=== PATIENT | male | born 1950 | race Caucasian/White ===

== ENCOUNTER 2019-11-07 03:18 | Outpatient (CLI) | payer MEDICARE, SELFPAY ==
[2019-11-07 12:13] LABS: ALT 22 U/L (16-63); AST 20 U/L (15-37); Albumin 4.1 g/dL (3.4-5.0); Alkaline Phosphatase 84 U/L (46-116); Anion Gap 2.9 mmol/L (3-11); BUN 15 mg/dL (7-18); Bilirubin, Total 0.4 mg/dL (0.2-1.0); CO2 29.1 mmol/L (21.0-32.0); CREATININE 1.38 mg/dL (0.70-1.30); Calcium 9.3 mg/dL (8.5-10.1); Calculated LDL 165 mg/dL (<100); Chloride 106 mmol/L (98-107); Cholesterol 256 mg/dL (<200); Estimated GFR 51.24 (mL/min/1.73m2); Glucose 97 mg/dL (74-106); HDL Cholesterol 61 mg/dL (40-60); Sodium 138 mmol/L (136-145); TSH (W/Ref FT4) 1.02 uIU/mL (0.36-3.74); Total Protein 7.2 g/dL (6.4-8.2); Triglyceride 152 mg/dL (<150)
== END 2019-11-07 03:38 ==
PROVIDERS: PCP Family Medicine; Visit Provider Family Medicine
DX: I10 Essential (primary) hypertension (principal); G47.10 Hypersomnia, unspecified
CPT/HCPCS: 36415; 80053; 80061; 84443

== ENCOUNTER 2020-10-30 02:31 | Outpatient (CLI) | payer MEDICARE, SELFPAY ==
[2020-10-30 14:37] LABS: Abs Immature Grans 0.04 10^3/uL (0.0-0.06); Absolute Basophil Count 0.02 10^3/uL (0.0-0.2); Absolute Lymphocyte Count 1.05 10^3/uL (1.2-3.4); Absolute Monocyte Count 0.86 10^3/uL (0.1-0.8); Absolute Neutrophil Count 6.85 10^3/uL (1.2-6.7); Basophils % 0.2; Eosinophils % 2.2; HCT 34.3 % (40.0-50.0); Immature Grans % 0.4; Lymphocytes % 11.6; MCH 27.4 pg (27.0-33.0); MCHC 32.1 % (32.0-36.0); MCV 85.3 fL (80-95); MPV 9.1 fL (8.0-11.0); Monocytes % 9.5; Neutrophils % 76.1; Nucleated RBC 0 %; Platelet Count 473 10^3/uL (130-400); RBC 4.02 10^6/uL (4.36-5.78); RDW 13.1 % (11.8-14.1); RDW-SD 40.5 fL; WBC 9.02 10^3/uL (4.4-10.8)
[2020-10-30 15:13] LABS: ALT 18 U/L (16-63); AST 25 U/L (15-37); Albumin 3.1 g/dL (3.4-5.0); Alkaline Phosphatase 104 U/L (46-116); Anion Gap 10.1 mmol/L (3-11); BUN 24 mg/dL (7-18); Bilirubin, Total 0.2 mg/dL (0.2-1.0); CO2 25.9 mmol/L (21.0-32.0); CREATININE 1.5 mg/dL (0.70-1.30); Calcium 8.8 mg/dL (8.5-10.1); Chloride 98 mmol/L (98-107); Glucose 134 mg/dL (74-106); Potassium 4.4 mmol/L (3.5-5.1); Sodium 134 mmol/L (136-145); Total Protein 6.7 g/dL (6.4-8.2)
== END 2020-10-30 02:32 | disposition home or self-care (01) ==
LOC: LBO 02:31
PROVIDERS: PCP Family Medicine; Visit Provider Family Medicine
DX: R63.4 Abnormal weight loss (principal); K62.5 Hemorrhage of anus and rectum
CPT/HCPCS: 36415; 80053; 85025

== ENCOUNTER 2020-11-03 10:11 | Emergency (ER) | payer MEDICARE, SELFPAY ==
[2020-11-03] VITALS (22 sets, daily range): BP systolic 108–140; BP diastolic 72–90; PULSE 65–77; RESP 12–26; TEMP 36.6–37.1; O2SAT 90–99
--- NOTE | 2020-11-03 10:00 | DI.CT_ITS ---
Exam(s) CT CHEST/ABD/PEL W EXAM: CT CHEST/ABD/PEL W CLINICAL HISTORY: unintentional weight loss, rectal bleeding. TECHNIQUE: Imaging Protocol: Axial computed tomography images with coronal and sagittal reformatted images were created and reviewed CONTRAST MATERIAL: Intravenous: Omnipaque 350 Contrast volume:100 ml Oral: None COMPARISON: CT CHEST WITHOUT CONTRAST from 09/14/2016 FINDINGS: CHEST: LUNGS: There are no pulmonary infiltrates nor pleural effusions. There is mild atelectasis in the la teral aspect of the left lower lobe. No ominous pulmonary nodules. MEDIASTINUM: There is no hilar nor mediastinal adenopathy. Visualized thyroid unremarkable.Fusion david te in the lower cervical spine incidentally noted. CARDIAC: Heart size is normal. There is no pericardial effusion.Ascending thoracic aorta is dilated with diameter 4.1 cm. No dissection. Diameter of the mid thoracic aortic arch is 2.7 cm. Diameter of proximal descending thoracic aorta is 3.2 cm. Diameter of the mid descending thoracic aorta is 3. 1 cm. Diameter of the distal thoracic aorta is 2.9 cm. OSSEOUS: No significant osseous lesions.. ABDOMEN: There is no ascites. LIVER: There is a 2 millimeter hypodensity in the anterior aspect of the liver. This has benign appe arance. Either small cyst or hemangioma. GALLBLADDER/BILIARY: Gallbladder slightly distended. No obvious gallstones seen on CT. No gallbladder wall edema or pericholecystic fluid. CBD is not dilated. PANCREAS: Mild dilatation of the pancreatic duct in the region of the head and neck. 3 millimeters cy stic structure in the uncinate process. No obvious solid mass seen in the pancreas. No peripancreatic fluid. SPLEEN: Spleen is not enlarged. There are no intrasplenic lesions. Splenic and portal veins are adams nt. ADRENALS: There are no significant adrenal masses. KIDNEYS: Cysts are noted in the right kidney. The largest cyst in the right kidney measures 2.5 by 1. 8 cm. No solid masses. Solitary small 5 millimeters cyst in the left kidney. Few small parapelvic cys ts are noted bilaterally. No hydronephrosis nor hydroureter. No intrarenal calculi evident. No calcul i in the urinary bladder. Bladder is not distended.. ABDOMINAL AORTA: Abdominal aorta is not enlarged. LYMPH NODES: There is no retroperitoneal nor paraaortic adenopathy. ABDOMINAL WALL: No evidence of significant anterior abdominal wall hernia. GI: There is a diffuse colitis pattern in the descending-left colon as well as sigmoid and rectum. Th ere is also extensive sigmoid diverticulosis. Just beyond the splenic flexure there is abundant strea yazmin around the proximal descending left colon. PELVIS: LYMPH NODES: There is no intrapelvic nor inguinal adenopathy. GI: No evidence of appendicitis.No evidence of sigmoid diverticulitis. URINARY BLADDER: No calculi nor masses evident REPRODUCTIVE: Prostate and seminal vesicles unremarkable. OSSEOUS: No significant osseous lesions. Partial ankylosis of the SI joints bilaterally. IMPRESSION: 1. The main finding here is a severe colitis pattern extending from the splenic flexure of the colon down to the rectum. There is also extensive diverticulosis of the sigmoid without evidence of acute d iverticulitis. 2. Mild prominence of the pancreatic duct. 3 millimeter cystic structure in the pancreatic uncinate p rocess. Recommend follow-up MRI. 3. Benign cysts in the kidneys, both cortical and parapelvic. No solid renal masses. No calculi. No h ydronephrosis. 4. In the chest there are no significant pulmonary findings nor pleural effusions. However, the diame ter of the ascending thoracic aorta is enlarged, measuring 4.1 cm. This requires appropriate follow-u p. RADIATION DOSE DELIVERED: 1,082.29mGy.cm Total DLP DATA REPOSITORY: All CT scans at this facility are submitted to the National Radiology Data Registry (NRDR) Dose Index Registry (DIR) with the [employer] (A[employer]). RADIATION OPTIMIZATION: All CT scans at this facility use at least one of these dose optimization te chniques: automated exposure control; mA and/or kV adjustment per patient size (includes targeted exa ms where dose is matched to clinical indication); or iterative reconstruction.
--- NOTE | 2020-11-03 10:20 | W.ED.GENAD ---
Discharge Plan Disposition Patient Disposition: HOME Condition: Stable Discharge Details Clinical Impression: Colitis, BRBPR (bright red blood per rectum), Dilated pancreatic duct Primary Care Provider: Lance Gonzalez ED Provider: Justina Plaza Home Meds and New Rx's Prescriptions: New metronidazole [Flagyl] 500 mg tablet 500 mg PO TID 7 Days Qty: 21 RF: 0 levofloxacin 750 mg tablet 750 mg PO DAILY Qty: 7 RF: 0 Continued albuterol sulfate [ProAir HFA] 90 mcg/actuation HFA aerosol inhaler 2 puff Inhalation Q6H PRN Qty: 1 RF: 6 amlodipine 10 mg tablet 10 mg PO DAILY Qty: 90 RF: 3 lisinopril 20 mg tablet 20 mg PO DAILY Qty: 90 RF: 3 meloxicam [Mobic] 15 mg tablet 15 mg PO DAILY Qty: 90 RF: 3 omeprazole 20 mg tablet,delayed release (DR/EC) See Rx Instructions PO BID Qty: 270 RF: 3 sertraline 100 mg tablet 200 mg PO HS Qty: 180 RF: 3 No Action prochlorperazine maleate 5 mg tablet 5 - 10 mg PO TID PRN (Reason: nausea and vomiting) Qty: 30 RF: 0 Discharge Instructions Instructions: Colitis (ED) Additional Instructions: Imaging completed today shows inflammation of your colon consistent with colitis. This may be infectious and the antibiotic should help. Please take the Flagyl and Levaquin as prescribed. You have received your first dosing of both. Your next dose of Levaquin will not be due until tomorrow. Please also oyster picker a probiotic at the pharmacy and take this along with the antibiotics to help prevent diarrhea. Encourage water intake. For the next 2 days, please stick with a bland and liquid diet. Please call general surgery clinic tomorrow, number listed below. Please discuss upcoming colonoscopy and concerns today. If you develop fever/chills, increased pain, inability stay hydrated or other new/worsening symptoms please seek care urgently once again. Otherwise, please follow-up in your with your primary care in the next 1 to 2 weeks for reevaluation. Referrals: Chanell Carlson MD [ [facility] STAFF PHYSICIAN] - Lance Gonzalez DO [Primary Care Provider] - Discharge Data Discharge Date/Time-TO BE ENTERED AT DEPARTURE: 11/03/20 14:35 Medical Decision Making Patient is a pleasant 70-year-old male presenting today with chief complaint of bright red blood per rectum, weakness, fatigue, nausea, vomiting. Patient reports that he has had a GI bleeding for the past 6 months. He has lost approximately 30 pounds unintentionally. He has been being followed by his primary care. He is scheduled to have a colonoscopy next week. States that he presents today because he has new onset of abdominal pain that has been present for the past 2 days. He states that he has a mixture of darker and brighter blood in his stool. He states that aside from the abdominal discomfort, the other symptoms are chronic but that everything seems to progressively be increasing. He denies any exacerbating symptoms to worsen his pain. However, he does state when the pain increases he is unable to maintain an erect posture. He denies any change in urinary habits, no easy bruising, no blood in his urine. States he is chronically short of breath which he associates with COPD. He denies any increase in this. No chest pain. Past medical history is pertinent for stage III kidney disease, depression, reflux, hiatal hernia, alcohol abuse, hyperlipidemia, COPD, hypertension. Patient is not anticoagulated. Reviewed recent note from patient's primary care provider. Patient was seen on 10/28/[address] lBair. They are primarily concern for colorectal carcinoma. However, he did advise that if his colonoscopy is normal he would likely obtain CT of chest abdomen pelvis. On exam, patient appears nontoxic. Vital signs are stable. He does not appear particularly pale, no conjunctival pallor. Lungs are clear, normal cardiac exam. No lower extremity edema. Patient indicates the entire lower abdomen is area of discomfort. However, no significant pain is elicited with palpation. I do feel an area that feels more firm on the right lower quadrant, concern for possible mass. However, patient did not express significant discomfort with palpation over this area. Will obtain chest abdomen pelvis CT as there is concern for cancerous etiology. Also obtain baseline labs including type and screen and CBC. Spoke wih patients daughter, Bina [phone]. She is concerned about weakness that has been reported and his ability to stay at home alone. Labs reviewed. No drop in H&H. No sigfnicant leukocytosis. INR WNL. Creatinine bumped at 1.9. He is receiving hydration. CT reviewed by radiologist: FINDINGS: Lungs: No acute infiltrates. Linear opacity at left lung base, consistent with subsegmental atelectasis and/or scar. No suspicious pulmonary nodule. Pleural spaces: Unremarkable. No pneumothorax. No pleural effusion. Heart: Unremarkable. No cardiomegaly. No pericardial effusion. Aorta: Dilated ascending thoracic aorta, with maximum diameter of 4.2 cm. Lymph nodes: Unremarkable. No enlarged lymph nodes. Bones/joints: ACDF hardware projects over the lower cervical spine. Soft tissues: Unremarkable. IMPRESSION: Dilated ascending thoracic aorta, with maximum diameter of 4.2 cm. Recommend clinical assessment and follow-up. Intraperitoneal space: Trace pelvic ascites. Vasculature: No aortic aneurysm. The superior mesenteric artery and vein are widely patent. Lymph nodes: Unremarkable. No enlarged lymph nodes. Urinary bladder: Unremarkable as visualized. Reproductive: 5.3 cm maximum transverse dimension of enlarged prostate. Seminal vesicles symmetric. Bones/joints: No acute or suspicious osseous abnormalities. Marked multilevel narrowing of the intervertebral disc spaces of the lumbar spine, which is greatest at L2-L3 and L4-L5. Soft tissues: Unremarkable. Other findings: No ductal dilation. IMPRESSION: 1. The pancreatic duct is dilated at the level of the pancreatic head and neck, with maximum diameter diameter of 5 mm. The pancreatic body and tail are mildly atrophic. These findings are of uncertain etiology or clinical significance. No discrete obstructing pancreatic mass is identified. If indicated, consider GI consult/follow-up. 2. Findings consistent with colitis which may be infectious or inflammatory in nature. 3. Enlarged prostate. 4. Trace pelvic ascites. 5. Mildly dilated gallbladder, of uncertain etiology or clinical significance, without other secondary signs of acute cholecystitis. Correlate with laboratory data and physical examination. Consulted with general surgeon regarding ductal dilatation, colitis, history. Spoke with Dr. Moctezuma who recommended a bland, liquid diet. Advised abx 7-10 days of rocephin flagyl if he stays inpatient or levoquinj flagyl if d/c to home. Needs MRCP at some point regarding the ductal dilation with GI. They advised this could be as an outpatient in 4-6 weeks. Call surgery office tomorrow to discuss visit and concerns. Discussed with patient. He does not want inpatient admission. He is agreeable to plan outlined by general surgery. He will f/u closely with PCP as well. Strict return precautions were discussed. Spoke with patient's daughter again, she is coming to stay with him and assist. Patient is moving well, unassisted. Gave first dose of abx, hydration. Encouraged that he have repeat labs completed in [facility] next few days. REferral for GI has been sent. All of his questions and concerns were addressed, he is in agreement with this plan. HPI General Mode of arrival: ambulatory. Date/Time Provider Initiated Documentation: 11/03/20 11:04. Limitations to Documentation: no limitations. Information obtained by: patient, RN notes reviewed and old records reviewed. History of Present Illness 70 year old M presents to the emergency department with the chief complaint of GI bleed, weakness, described as moderate, with intensity rated at 7. Quality is described as aching, and is localized to the abdomen. Patient reports no radiation. Patient started experiencing this month(s) and it has been constant. No relieving factors improve symptom(s), Eating worsens symptoms . Patient notes loss of appetite, nausea/vomiting and weakness (generalized); denies chest pain, cough, fever/chills, rash, shortness of breath and syncope. Patient did receive the following treatments prior to arrival, none Related Data Home Medications Medication Instructions Recorded Confirmed amlodipine 10 mg tablet 10 mg PO DAILY #90 tab 10/21/20 11/03/20 lisinopril 20 mg tablet 20 mg PO DAILY #90 tab 10/21/20 11/03/20 meloxicam 15 mg tablet 15 mg PO DAILY #90 tab 10/21/20 11/03/20 omeprazole 20 mg tablet,delayed See Rx Instructions PO BID #270 10/21/20 11/03/20 release tab-cap sertraline 100 mg tablet 200 mg PO HS #180 tab-cap 10/21/20 11/03/20 albuterol sulfate 90 mcg/actuation 2 puff INHALATION Q6H PRN #1 10/28/20 11/03/20 aerosol inhaler inhaler levofloxacin 750 mg PO DAILY #7 tab 11/03/20 metronidazole [Flagyl] 500 mg PO TID 7 Days #21 tab 11/03/20 prochlorperazine maleate 5 mg 5 - 10 mg PO TID PRN #30 tab 11/06/20 tablet Previous Rx's Medication Instructions Recorded amlodipine 10 mg tablet 10 mg PO DAILY #90 tab 08/09/21 lisinopril 20 mg tablet 20 mg PO DAILY #90 tab 10/21/20 meloxicam 15 mg tablet 15 mg PO DAILY #90 tab 10/21/20 omeprazole 20 mg tablet,delayed See Rx Instructions PO BID #270 10/21/20 release tab-cap sertraline 100 mg tablet 200 mg PO HS #180 tab-cap 10/21/20 albuterol sulfate 90 mcg/actuation 2 puff INHALATION Q6H PRN #1 10/28/20 aerosol inhaler inhaler levofloxacin 750 mg PO DAILY #7 tab 11/03/20 metronidazole [Flagyl] 500 mg PO TID 7 Days #21 tab 11/03/20 prochlorperazine maleate 5 mg 5 - 10 mg PO TID PRN #30 tab 11/06/20 tablet Allergies Allergy/AdvReac Type Severity Reaction Status Date / Time ibuprofen AdvReac Intermediate GI Verified 11/03/20 10:16 intolerance hydrochlorothiazide AdvReac Unknown avoid dt Verified 11/03/20 10:16 h/o Gout oxycodone AdvReac Unknown shakes, Verified 11/03/20 10:16 cold sweats (from Percocet) General Stated Complaint: GI Bleed HUGO: 2 Review of Systems Constitutional Constitutional: Reports as per HPI, Denies chills, Denies fatigue, Denies fever(s), Denies headache(s), Reports poor appetite and Reports weakness ENT Ears, Nose, Mouth, and Throat: Denies headache(s) Cardiovascular Cardiovascular: Reports as per HPI, Denies chest pain and Denies dyspnea Respiratory Respiratory: Reports as per HPI, Denies cough and Denies dyspnea Gastrointestinal Gastrointestinal: Reports as per HPI Genitourinary Genitourinary: Denies system reviewed and no additional complaints, except as documented (patient denies any change in urinary habits) and Denies hematuria Musculoskeletal Musculoskeletal: Reports as per HPI and Denies back pain Integumentary/Breasts Skin/Breast: Reports as per HPI and Denies rash Neurologic Neurologic: Reports as per HPI, Denies headache(s) and Reports weakness Endocrine Endocrine: Denies fatigue [facility] Medical History (Updated 11/03/20 @ 14:07 by MYRNA Denson) Bright red blood per rectum Depressive disorder (06/02/05) fluoxetine responsive; sertraline responsive (h/o withdrawal symptoms at [facility] 04/2014) 06/10/[address] Dagmar Kenny psych, Social Phobia F40.10, /WALTER F41.1 Excessive daytime sleepiness Stage III chronic kidney disease Unexplained weight loss Surgical History Cervical fusion (04/15/00) C4-6 fusion, anterior approach, steel plate, [place] for arm weakness Endoscopy (10/09/16) [facility] [place] Prosper Uribe MD thickened epiglottis H/O cataract removal with insertion of prosthetic lens 10/04/19 OD Repair of inguinal hernia (03/30/05) MAURO, L inguinal, Dr Monge Thoracentesis (04/11/14) L 200 cc exudate, [place] thoracotomy, open, peel (05/01/14) L open, path neg, ruiz pneumonic empyema Family History Father Mental disorder Probable depression Social History Smoking/Tobacco Use Status: Former Tobacco Use Smoking risk assessment performed?: Yes Alcohol Intake: former Drug use: Never Housing: house current occupation: retired from [employer] Pets and animals: Yes Pets and animals: dog(s) What is your relationship status?: Panel score (0-1 are the most socially isolated patients): 0 What type of physical activity do you participate in: none Seatbelt use: always Drive intox or ride w/intox show horse driver: No Working smoke detector in home: Yes Carbon monox detector in home: Yes Do you feel safe in your relationship?: Yes Exam Const General: cooperative, comfortable, no acute distress, well developed and ill appearing chronically Nutritional Appearance: average body habitus and well nourished Orientation: alert and awake [facility] Head: normal to inspection Mouth: moist mucous membranes Eyes General: appearance normal, both eyes and all related structures (no pallor) Resp Effort & Inspection: normal respiratory effort, able to speak in complete sentences and no respiratory distress Auscultation: clear to auscultation bilaterally, no rales, no rhonchi and no wheezes Cardio Rate: regular rate Rhythm: regular rhythm Heart Sounds: S1 normal and S2 normal GI Inspection: normal to inspection Palpation: soft, no hepatosplenomegaly, not firm, no guarding, no pulsatile masses, not rigid and tender in the RLQ Percussion: normal to percussion Auscultation: normal bowel sounds Back/Spine/Pelvis Back: no CVA tenderness Skin General skin exam: no rashes or lesions noted Trauma: no lacerations or abrasions Neuro General: patient alert and patient awake Cognition: normal cognition Speech: speech normal Gait: normal gait Extrem General: normal to inspection, capillary refill normal, no pedal edema, no calf tenderness and other (2+ distal pulses) Psych Appearance: grossly normal and well kempt Mental Status: mental status grossly normal Speech and Movement: speech and movement normal Course Vital Signs Vital signs: Vital Signs Temperature 37.1 C 11/03/20 10:11 Pulse 71 11/03/20 10:11 Respiratory Rate 18 11/03/20 10:11 Blood Pressure 140/90 11/03/20 10:11 Pulse Oximetry 96 11/03/20 10:11 Temperature 37.1 C 11/03/20 10:11 Temperature Source Skin 11/03/20 10:11 Pulse 71 11/03/20 10:11 Respiratory Rate 18 11/03/20 10:11 Respiratory Effort Non-Labored 11/03/20 10:16 Blood Pressure 140/90 11/03/20 10:11 Blood Pressure Position Sitting 11/03/20 10:11 Pulse Oximetry 96 11/03/20 10:11 Oxygen Delivery Method Room Air 11/03/20 10:11 Oxygen Flow Rate 0 11/03/20 10:11 Pain Level 7 11/03/20 10:11
[2020-11-03 10:27] LABS: Abs Immature Grans 0.03 10^3/uL (0.0-0.06); Absolute Basophil Count 0.04 10^3/uL (0.0-0.2); Absolute Eosinophil Count 0.13 10^3/uL (0.0-0.7); Absolute Lymphocyte Count 0.97 10^3/uL (1.2-3.4); Absolute Monocyte Count 1.01 10^3/uL (0.1-0.8); Absolute Neutrophil Count 9.68 10^3/uL (1.2-6.7); Basophils % 0.3; Eosinophils % 1.1; HCT 35.7 % (40.0-50.0); HGB 11.5 g/dL (13.5-17.5); Immature Grans % 0.3; Lymphocytes % 8.2; MCH 27.5 pg (27.0-33.0); MCHC 32.2 % (32.0-36.0); MCV 85.4 fL (80-95); MPV 8.7 fL (8.0-11.0); Monocytes % 8.5; Neutrophils % 81.6; Nucleated RBC 0 %; Platelet Count 520 10^3/uL (130-400); RBC 4.18 10^6/uL (4.36-5.78); RDW 13.3 % (11.8-14.1); RDW-SD 41.8 fL; WBC 11.86 10^3/uL (4.4-10.8)
[2020-11-03] MEDS: Ondansetron 4 MG/2 ML VIAL IM (10:30)
[2020-11-03] MEDS: Lactated Ringers 1,000 ML 1000 ML IV (10:30)
[2020-11-03] MEDS: MORPHine 4 MG/ML SYR IVP ×2 (10:31→13:03)
[2020-11-03 10:38] LABS: Prothrombin Time 9.8 sec (9.3-11.0)
[2020-11-03 10:44] LABS: ALT 21 U/L (16-63); AST 19 U/L (15-37); Alkaline Phosphatase 117 U/L (46-116); Anion Gap 5.3 mmol/L (3-11); BUN 37 mg/dL (7-18); Bilirubin, Total 0.3 mg/dL (0.2-1.0); CO2 29.7 mmol/L (21.0-32.0); CREATININE 1.9 mg/dL (0.70-1.30); Chloride 101 mmol/L (98-107); Estimated GFR 35.32 (mL/min/1.73m2); Glucose 118 mg/dL (74-106); Magnesium 1.9 mg/dL (1.8-2.4); Potassium 4.5 mmol/L (3.5-5.1); Sodium 136 mmol/L (136-145); Total Protein 7.5 g/dL (6.4-8.2)
[2020-11-03 10:45] LABS: Troponin I < 0.05 ng/mL (<0.06)
[2020-11-03] MEDS: Lactated Ringers 1,000 ML 125 ML IV (11:07)
[2020-11-03 11:37] LABS: Lipase 159 U/L (73-393)
--- NOTE | 2020-11-03 11:40 | NUR.NOTE ---
Nursing Note: Bina [phone] daughter
[2020-11-03 11:53] LABS: Bilirubin Negative (Negative); Blood Negative (Negative); Clarity Clear (Clear); Glucose Negative (Negative); Ketones Negative (Negative); Leukocyte Esterase Negative (Negative); Nitrite Negative (Negative); Specific Gravity 1.015 (1.005-1.025); Urobilinogen 0.2 EU/dL (Up TO 0.2)
[2020-11-03] MEDS: Omnipaque 350 MG/ML 100 ML BTL IV (12:44)
[2020-11-03] MEDS: Normal Saline Flush 10 ML SYR IVP (12:45)
[2020-11-03] MEDS: ACETAMINOPHEN 1,000 MG/100 ML BTL 400 MG IVPB (13:02)
--- NOTE | 2020-11-03 13:29 | DI.VRAD_ITS ---
PROCEDURE INFORMATION: Exam: CT Chest With Contrast; Diagnostic Exam date and time: 11/03/2020 10:09 AM Age: 70 years old Clinical indication: Other: Unintentional weight loss, rectal bleeding TECHNIQUE: Imaging protocol: Diagnostic computed tomography of the chest with contrast. 3D rendering (Not supervised by radiologist): MIP and/or 3D reconstructed images were created by the technologist. Radiation optimization: All CT scans at this facility use at least one of these dose optimization techniques: automated exposure control; mA and/or kV adjustment per patient size (includes targeted exams where dose is matched to clinical indication); or iterative reconstruction. Contrast material: OMNIPAQUE 350; Contrast volume: 100 ml; Contrast route: INTRAVENOUS (IV); COMPARISON: CT CHEST WITHOUT CONTRAST 09/14/2016 2:07 PM FINDINGS: Lungs: No acute infiltrates. Linear opacity at left lung base, consistent with subsegmental atelectasis and/or scar. No suspicious pulmonary nodule. Pleural spaces: Unremarkable. No pneumothorax. No pleural effusion. Heart: Unremarkable. No cardiomegaly. No pericardial effusion. Aorta: Dilated ascending thoracic aorta, with maximum diameter of 4.2 cm. Lymph nodes: Unremarkable. No enlarged lymph nodes. Bones/joints: ACDF hardware projects over the lower cervical spine. Soft tissues: Unremarkable. IMPRESSION: Dilated ascending thoracic aorta, with maximum diameter of 4.2 cm. Recommend clinical assessment and follow-up. PROCEDURE INFORMATION: Exam: CT Abdomen And Pelvis With Contrast Exam date and time: 11/03/2020 10:09 AM Age: 70 years old Clinical indication: Other: Unintentional weight loss, rectal bleeding TECHNIQUE: Imaging protocol: Computed tomography of the abdomen and pelvis with contrast. 3D rendering (Not supervised by radiologist): MIP and/or 3D reconstructed images were created by the technologist. Radiation optimization: All CT scans at this facility use at least one of these dose optimization techniques: automated exposure control; mA and/or kV adjustment per patient size (includes targeted exams where dose is matched to clinical indication); or iterative reconstruction. Contrast material: OMNIPAQUE 350; Contrast volume: 100 ml; Contrast route: INTRAVENOUS (IV); COMPARISON: CT CHEST WITHOUT CONTRAST 09/14/2016 2:07 PM FINDINGS: Liver: Subcentimeter low-attenuation structure in the liver, too small to characterize by CT, but likely benign. Otherwise unremarkable liver. Gallbladder and bile ducts: Mildly dilated gallbladder. No gallbladder wall thickening, pericholecystic inflammatory change, or calcified gallstones identified. No biliary dilatation. Common bile duct diameter is 4 mm. Pancreas: The pancreatic duct is dilated at the level of the pancreatic head and neck, with maximum diameter diameter of 5 mm. No discrete pancreatic mass is identified. The pancreatic body and tail are mildly atrophic. Spleen: Normal. No splenomegaly. Adrenal glands: Normal. No mass. Kidneys and ureters: Rounded water attenuation simple cysts in the right kidney, which require no further follow-up, measuring as large as 2.4 cm in the upper pole. Additional subcentimeter low-attenuation structures in the kidneys, too small to characterize by CT but likely benign, requiring no further follow-up. Parapelvic left renal cysts. Otherwise unremarkable kidneys. Stomach and bowel: Extending from the splenic flexure through the rectum, the colon demonstrates due for diffuse circumferential mild edematous wall thickening and mucosal hyperenhancement with associated mild pericolonic fat stranding. Scattered sigmoid diverticula are seen, without evidence of diverticulitis. No bowel obstruction. Appendix: The appendix is unable to be delineated, however no inflammatory changes are seen in the expected region of the appendix. Intraperitoneal space: Trace pelvic ascites. Vasculature: No aortic aneurysm. The superior mesenteric artery and vein are widely patent. Lymph nodes: Unremarkable. No enlarged lymph nodes. Urinary bladder: Unremarkable as visualized. Reproductive: 5.3 cm maximum transverse dimension of enlarged prostate. Seminal vesicles symmetric. Bones/joints: No acute or suspicious osseous abnormalities. Marked multilevel narrowing of the intervertebral disc spaces of the lumbar spine, which is greatest at L2-L3 and L4-L5. Soft tissues: Unremarkable. Other findings: No ductal dilation. IMPRESSION: 1. The pancreatic duct is dilated at the level of the pancreatic head and neck, with maximum diameter diameter of 5 mm. The pancreatic body and tail are mildly atrophic. These findings are of uncertain etiology or clinical significance. No discrete obstructing pancreatic mass is identified. If indicated, consider GI consult/follow-up. 2. Findings consistent with colitis which may be infectious or inflammatory in nature. 3. Enlarged prostate. 4. Trace pelvic ascites. 5. Mildly dilated gallbladder, of uncertain etiology or clinical significance, without other secondary signs of acute cholecystitis. Correlate with laboratory data and physical examination. Dictated and Authenticated by: Ellen Freeman MD. Ordering:FARHANA Horn MD
--- NOTE | 2020-11-03 14:15 | NUR.NOTE ---
Nursing Note: Referral given to Care management for follow up in 4 to 6 weeks for pancreatic ductal dilation, needs MRCP. Cathy Diane
[2020-11-03] MEDS: levoFLOXacin 500 MG, levoFLOXacin 250 MG 750 MG PO (14:21)
[2020-11-03] MEDS: metroNIDAZOLE 500 MG TAB PO (14:21)
--- NOTE | 2020-11-04 11:22 | PDOC.ERCMPRO ---
- If Service Date Differs Date of service: 11/04/20 Time of Service: 11:22 Care Management Progress Note Alfonzo is seen in the ED for colitis and a dilated pancreatic duct. At the request of ED provider, CM coordinates a referral to [facility] to assist Alfonzo in obtaining an appointment for an MRCP.
== END 2020-11-03 14:35 | disposition home or self-care (01) ==
PROVIDERS: Emergency Provider Physician Assistant; PCP Family Medicine
DX: K62.5 Hemorrhage of anus and rectum (principal); K52.9 Noninfective gastroenteritis and colitis, unspecified; K86.89 Other specified diseases of pancreas; R63.4 Abnormal weight loss; R10.30 Lower abdominal pain, unspecified
CPT/HCPCS: 36415; 74177; 80053; 83690; 86850; 86900; 86901; 96361; 96372; 96374; 96375; 96376; 99285; 71260; 81003; 83735; 84484; 85025; 85610; J0131; J2270; J2405; J3490

== ENCOUNTER 2020-12-03 02:09 | Outpatient (CLI) | payer MEDICARE, SELFPAY ==
[2020-12-03 14:33] LABS: Abs Immature Grans 0.03 10^3/uL (0.0-0.06); Absolute Basophil Count 0.05 10^3/uL (0.0-0.2); Absolute Lymphocyte Count 1.65 10^3/uL (1.2-3.4); Absolute Monocyte Count 0.62 10^3/uL (0.1-0.8); Absolute Neutrophil Count 4.93 10^3/uL (1.2-6.7); Basophils % 0.7; Eosinophils % 2.7; HCT 33.5 % (40.0-50.0); Immature Grans % 0.4; Lymphocytes % 22.1; MCH 28.1 pg (27.0-33.0); MCHC 32.8 % (32.0-36.0); MCV 85.5 fL (80-95); MPV 8.8 fL (8.0-11.0); Monocytes % 8.3; Neutrophils % 65.8; Nucleated RBC 0 %; Platelet Count 387 10^3/uL (130-400); RBC 3.92 10^6/uL (4.36-5.78); RDW 16.6 % (11.8-14.1); RDW-SD 51.6 fL; WBC 7.48 10^3/uL (4.4-10.8)
[2020-12-03 17:35] LABS: ALT 24 U/L (16-63); AST 24 U/L (15-37); Albumin 3.7 g/dL (3.4-5.0); Alkaline Phosphatase 88 U/L (46-116); Anion Gap 8.7 mmol/L (3-11); BUN 23 mg/dL (7-18); Bilirubin, Total 0.3 mg/dL (0.2-1.0); CO2 27.3 mmol/L (21.0-32.0); CREATININE 1.2 mg/dL (0.70-1.30); Calcium 9.2 mg/dL (8.5-10.1); Chloride 102 mmol/L (98-107); Ferritin 58 ng/mL (26-388); Glucose 95 mg/dL (74-106); Potassium 4.7 mmol/L (3.5-5.1); Sodium 138 mmol/L (136-145); Total Protein 7.5 g/dL (6.4-8.2)
[2020-12-04 09:58] LABS: Prealbumin 28 mg/dL (20-40)
== END 2020-12-03 02:10 | disposition home or self-care (01) ==
LOC: LBO 02:09
PROVIDERS: PCP Nurse Practitioner Adult Health; Visit Provider Nurse Practitioner Adult Health
DX: I10 Essential (primary) hypertension (principal); K62.5 Hemorrhage of anus and rectum; D64.9 Anemia, unspecified; E88.09 Other disorders of plasma-protein metabolism, not elsewhere classified; N18.30 Chronic kidney disease, stage 3 unspecified; R63.4 Abnormal weight loss
CPT/HCPCS: 36415; 80053; 82728; 84134; 85025

== ENCOUNTER 2020-12-24 00:56 | Outpatient (CLI) | payer MEDICARE, SELFPAY ==
--- NOTE | 2020-12-24 06:45 | DI.MRI_ITS ---
Exam(s) MR ABDOMEN WO/W EXAM: MR ABDOMEN WO/W CLINICAL HISTORY: F/U ABNL CT,HYPETENSION,CYSTIC STRUCTURE PANCREATIC UNCINATE TECHNIQUE: Multiplanar multisequence MRI was performed with both pre and post contrast infused seque nces. Contrast injected sequences were performed following IV injection of 15 cc of Dotarem. COMPARISON: CT CT CHEST/ABD/PEL W from 11/03/2020 FINDINGS: VISUALIZED LUNG BASES: No pleural effusions evident. There is no ascites evident. LIVER: There is a small nonenhancing 4 millimeter cyst in the anterior aspect of the liver which is p robably a small intrahepatic cyst. There are no ominous focal hepatic lesions nor dilatation of intr ahepatic ducts. BILIARY: There is no obvious gallbladder pathology. The CBD is not dilated.It exhibits diameter 5 mi llimeters. PANCREAS: There is no evidence of pancreatic mass nor dilatation of the pancreatic duct.Pancreatic du ct diameter is upper normal. No solid pancreatic mass is seen. The finding described on the recent CT scan in the uncinate process and has the appearance of a nonenhancing 3 millimeter cyst, this in t he mid anterior aspect of the uncinate process 1.4 cm medial to its triangular tip. There is no cont our abnormality of the gland at this level. No regional adenopathy. Less likely represents a tiny b enign-appearing intra pancreatic cystic neoplasm SPLEEN: Spleen is not enlarged and there are no intrasplenic lesions.Splenic and portal veins are pat ent ADRENALS: There are no significant adrenal masses. KIDNEYS: No solid renal masses. No hydronephrosis.Multiple cysts in the right kidney and bilateral p arapelvic cysts, the parapelvic cysts being more prominent on the left side. ABDOMINAL AORTA: Ectatic but not significantly large. No para-aortic adenopathy evident. ANTERIOR ABDOMINAL WALL/GI: There is no evidence of significant anterior abdominal wall hernia in the field of view of this study.Is no evidence of obvious bowel obstruction. OSSEOUS: There are no lytic osseous lesions in the field of view of this study. 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 Spinal canal stenosis noted in the lower lumbar spine. IMPRESSION: 1. There is a solitary tiny 3 millimeter cyst in the uncinate process of the pancreas, corresponding to what was seen on recent CT scan. This has benign appearance. Tiny cysts versus is small benign-a ppearing intracystic neoplasm. Recommend follow-up MRI or CT scan in 6 months. 2. Benign-appearing small cyst in the anterior aspect of the left hepatic lobe. No ominous focal hep atic lesions. 3. Benign cortical and parapelvic cysts in the kidneys. No solid renal masses. DATA REPOSITORY:
[2020-12-24] MEDS: Gadoterate meglumine 20 ML VIAL 15 ML IVP (09:31)
== END 2020-12-24 01:16 ==
LOC: DI 00:56
PROVIDERS: PCP Nurse Practitioner Adult Health; Visit Provider Nurse Practitioner Adult Health
DX: K86.89 Other specified diseases of pancreas (principal); R63.4 Abnormal weight loss; R93.5 Abnormal findings on diagnostic imaging of other abdominal regions, including retroperitoneum; I10 Essential (primary) hypertension; K76.89 Other specified diseases of liver
CPT/HCPCS: 74183

== ENCOUNTER 2021-11-10 02:41 | Outpatient (CLI) | payer MEDICARE, SELFPAY ==
--- NOTE | 2021-11-10 08:30 | DI.CT_ITS ---
Exam(s) CT CHEST WO EXAM: CT CHEST WO CLINICAL HISTORY: Reassess thoracic aorta, r/o aneurysm, ABNL THORACIC AORTA, Q25.40. TECHNIQUE: Imaging protocol: Axial computed tomography images were obtained and coronal and sagittal reformatted images were created and reviewed. COMPARISON: CT CT CHEST/ABD/PEL W from 11/03/2020 FINDINGS: Tracheobronchial tree: Patent where visualized. Pulmonary parenchyma: No consolidation or dominant measurable mass. Mild centrilobular emphysematous changes are present. Mediastinum and Stella: No dominant adenopathy or fluid collection. The esophagus is unremarkable. Thyroid gland: Unremarkable. Pleura: No effusion or pneumothorax. Heart: The heart is not dilated. Mild coronary artery calcification is present. No pericardial effus ion. Aorta: The ascending thoracic aorta measures 4.1 x 4.2 cm. This is unchanged compared to the prior ex amination. The diameter of the mid thoracic aortic arch is 2.8 cm which is grossly unchanged. The pro ximal, mid and distal thoracic aortic diameters are 3.3, 3.1 and 3 cm respectively. These show no sig nificant change. There is atherosclerosis present. Upper abdomen: Unremarkable. Lymph nodes: Within normal limits. Soft tissues: Unremarkable. Bones:Within normal limits for the patient's age. IMPRESSION: Stable enlarged ascending thoracic aorta. No significant change in the size of the thoracic aorta sin ce 11/03/2020. RADIATION DOSE DELIVERED: 427.77mGy.cm Total DLP 427.77mGy.cm Total DLP DATA REPOSITORY: All CT scans at this facility are submitted to the National Radiology Data Registry (NRDR) Dose Index Registry (DIR) with the [employer] ([employer]). RADIATION OPTIMIZATION: All CT scans at this facility use at least one of these dose optimization te chniques: automated exposure control; mA and/or kV adjustment per patient size (includes targeted exa ms where dose is matched to clinical indication); or iterative reconstruction.
== END 2021-11-10 03:01 ==
LOC: DI 02:41
PROVIDERS: PCP Nurse Practitioner Adult Health; Visit Provider Nurse Practitioner Adult Health
DX: I77.89 Other specified disorders of arteries and arterioles (principal); Q25.40 Congenital malformation of aorta unspecified
CPT/HCPCS: 71250

== ENCOUNTER 2021-11-19 04:28 | Outpatient (CLI) | payer MEDICARE, SELFPAY ==
--- NOTE | 2021-11-19 08:15 | DI.RAD_ITS ---
Exam(s) XR KNEE LT 3V AP,LAT,RENAN EXAM: XR KNEE LT 3V AP,LAT,RENAN CLINICAL HISTORY: Assesss degree of OA, SILVIA KNEE PAIN, M25.562, M25.561. TECHNIQUE: 2D digital imaging was performed of the left knee. Three images were obtained. AP, late ral and PA tunnel views were obtained. COMPARISON: No previous for comparison. FINDINGS: BONES: No acute fracture is present. No bony destructive lesion is seen. JOINTS: There is moderate to severe narrowing of the mid lateral femoral tibial joint. Periarticular spurring is seen involving all 3 joint compartments. No joint effusion is seen. SOFT TISSUE: Normal. IMPRESSION: Moderately severe osteoarthritis of the left knee. DATA REPOSITORY: RADIATION DOSE DELIVERED:
--- NOTE | 2021-11-19 08:15 | DI.RAD_ITS ---
Exam(s) XR ARTHRITIS SERIES EXAM: XR ARTHRITIS SERIES CLINICAL HISTORY: all joints of both hands hurt--?signs of RA/erosion, M79.641, M79.642. TECHNIQUE: 2D digital imaging was performed. COMPARISON: CR LEFT HAND LIMITED from 10/13/2012 FINDINGS: BONES: No acute fracture is present. No bony destructive lesion is seen. JOINTS: There is joint space narrowing and prominent osteophytes at multiple joints throughout both h ands. There is relative sparing of the carpus bilaterally. The findings are most marked at the inte rphalangeal joints but also involves the metacarpophalangeal joints. No periarticular osteopenia or erosions are seen. No significant soft tissue calcifications are present. No periosteal reaction is seen. SOFT TISSUE: Normal. IMPRESSION: Findings most concerning for osteoarthritis of the hands bilaterally. DATA REPOSITORY: RADIATION DOSE DELIVERED:
--- NOTE | 2021-11-19 08:15 | DI.RAD_ITS ---
Exam(s) XR KNEE RT 3V AP,LAT,RENAN EXAM: XR KNEE RT 3V AP,LAT,RENAN CLINICAL HISTORY: Assesss degree of OA, SILVIA KNEE PAIN, M79.562, M25.561. TECHNIQUE: 2D digital imaging was performed of the right knee. Three views obtained. AP, lateral an d PA tunnel views were obtained. COMPARISON: No previous for comparison. FINDINGS: BONES: No acute fracture is present. No bony destructive lesion is seen. JOINTS: There is mild narrowing of the lateral femoral tibial joint. Periarticular spurring is seen involving all 3 joint compartments. No joint effusion is seen. SOFT TISSUE: Mild atherosclerosis is present. IMPRESSION: Moderate degenerative changes of the knee. DATA REPOSITORY: RADIATION DOSE DELIVERED:
[2021-11-19 13:54] LABS: Abs Immature Grans 0.01 10^3/uL (0.0-0.06); Absolute Basophil Count 0.03 10^3/uL (0.0-0.2); Absolute Lymphocyte Count 1.17 10^3/uL (1.2-3.4); Absolute Monocyte Count 0.55 10^3/uL (0.1-0.8); Absolute Neutrophil Count 5.55 10^3/uL (1.2-6.7); Basophils % 0.4; Eosinophils % 1.3; HGB 10.2 g/dL (13.5-17.5); Immature Grans % 0.1; Lymphocytes % 15.8; MCH 25.8 pg (27.0-33.0); MCHC 31.9 % (32.0-36.0); MCV 81 fL (80-95); MPV 9.1 fL (8.0-11.0); Monocytes % 7.4; Platelet Count 468 10^3/uL (130-400); RBC 3.96 10^6/uL (4.36-5.78); RDW 17.9 % (11.8-14.1); RDW-SD 53.1 fL; Reticulocyte 0.9 % (0.5-2.4); WBC 7.41 10^3/uL (4.4-10.8)
[2021-11-19 15:03] LABS: Ferritin 20 ng/mL (26-388); Vitamin B12 343 pg/mL (193-986)
[2021-11-19 15:07] LABS: Iron 52 ug/dL (65-175); Total Iron Binding Capacity 298 ug/dL (250-450)
[2021-11-20 10:39] LABS: Transferrin 242 mg/dL (201-352)
== END 2021-11-19 04:29 | disposition home or self-care (01) ==
LOC: LBO 04:28
PROVIDERS: PCP Nurse Practitioner Adult Health; Referring Provider Nurse Practitioner Adult Health; Visit Provider Nurse Practitioner Adult Health
DX: M19.041 Primary osteoarthritis, right hand; M17.0 Bilateral primary osteoarthritis of knee; D64.9 Anemia, unspecified; N18.30 Chronic kidney disease, stage 3 unspecified; R53.83 Other fatigue; M19.042 Primary osteoarthritis, left hand
CPT/HCPCS: 36415; 73562; 73120; 82607; 82728; 82746; 83540; 83550; 84466; 85025; 85045

== ENCOUNTER 2023-01-15 02:27 | Outpatient (CLI) | payer MEDICARE, SELFPAY ==
[2023-01-15 10:54] LABS: Abs Immature Grans 0.01 10^3/uL (0.0-0.06); Absolute Basophil Count 0.03 10^3/uL (0.0-0.2); Absolute Eosinophil Count 0.12 10^3/uL (0.0-0.7); Absolute Lymphocyte Count 1.12 10^3/uL (1.2-3.4); Absolute Monocyte Count 0.39 10^3/uL (0.1-0.8); Absolute Neutrophil Count 3.47 10^3/uL (1.2-6.7); Basophils % 0.6; Eosinophils % 2.3; HCT 38.1 % (40.0-50.0); HGB 12.3 g/dL (13.5-17.5); Immature Grans % 0.2; Lymphocytes % 21.8; MCH 29.6 pg (27.0-33.0); MCHC 32.3 % (32.0-36.0); MCV 92 fL (80-95); MPV 8.9 fL (8.0-11.0); Monocytes % 7.6; Neutrophils % 67.5; Platelet Count 309 10^3/uL (130-400); RBC 4.16 10^6/uL (4.36-5.78); RDW 13.7 % (11.8-14.1); RDW-SD 46.8 fL; WBC 5.14 10^3/uL (4.4-10.8)
[2023-01-15 11:32] LABS: ALT 25 U/L (16-63); AST 24 U/L (15-37); Albumin 3.6 g/dL (3.4-5.0); Alkaline Phosphatase 91 U/L (46-116); BUN 20 mg/dL (7-18); Bilirubin, Total 0.3 mg/dL (0.2-1.0); CREATININE 1.5 mg/dL (0.70-1.30); Calcium 9.3 mg/dL (8.5-10.1); Calculated LDL 125 mg/dL (<100); Chloride 103 mmol/L (98-107); Cholesterol 200 mg/dL (<200); Estimated GFR 49.16 (mL/min/1.73m2); Glucose 101 mg/dL (74-106); HDL Cholesterol 63 mg/dL (40-60); Potassium 4.6 mmol/L (3.5-5.1); Sodium 138 mmol/L (136-145); Triglyceride 61 mg/dL (<150)
== END 2023-01-15 02:28 | disposition home or self-care (01) ==
PROVIDERS: PCP Nurse Practitioner Adult Health; Referring Provider Nurse Practitioner Adult Health; Visit Provider Nurse Practitioner Adult Health
DX: J44.9 Chronic obstructive pulmonary disease, unspecified (principal); E78.5 Hyperlipidemia, unspecified; D64.9 Anemia, unspecified; Z13.1 Encounter for screening for diabetes mellitus; Z13.220 Encounter for screening for lipoid disorders
CPT/HCPCS: 36415; 80053; 80061; 85025

== ENCOUNTER 2023-11-01 03:48 | Outpatient (CLI) | payer MEDICARE, SELFPAY ==
[2023-11-01 13:22] LABS: Abs Immature Grans 0.02 10^3/uL (0.0-0.06); Absolute Basophil Count 0.03 10^3/uL (0.0-0.2); Absolute Eosinophil Count 0.03 10^3/uL (0.0-0.7); Absolute Lymphocyte Count 0.72 10^3/uL (1.2-3.4); Absolute Monocyte Count 0.64 10^3/uL (0.1-0.8); Absolute Neutrophil Count 5.75 10^3/uL (1.2-6.7); Basophils % 0.4 %; Eosinophils % 0.4 %; HCT 43.5 % (40.0-50.0); Immature Grans % 0.3 %; MCH 29.7 pg (27.0-33.0); MCHC 32.2 % (32.0-36.0); MCV 92 fL (80-95); MPV 9.8 fL (8.0-11.0); Monocytes % 8.9 %; Platelet Count 273 10^3/uL (130-400); RBC 4.72 10^6/uL (4.36-5.78); RDW 13.5 % (11.8-14.1); RDW-SD 46.5 fL; WBC 7.19 10^3/uL (4.4-10.8)
[2023-11-01 13:56] LABS: ALT 21 U/L (16-63); AST 22 U/L (15-37); Albumin 3.9 g/dL (3.4-5.0); Alkaline Phosphatase 109 U/L (46-116); Anion Gap 11.7 mmol/L (3-11); BUN 22 mg/dL (7-18); Bilirubin, Total 0.74 mg/dL (0.2-1.0); CO2 26.3 mmol/L (21.0-32.0); CREATININE 1.5 mg/dL (0.70-1.30); Calcium 9.5 mg/dL (8.5-10.1); Chloride 101 mmol/L (98-107); Estimated GFR 49.16 (mL/min/1.73m2); Glucose 92 mg/dL (74-106); Potassium 4.5 mmol/L (3.5-5.1); Sodium 139 mmol/L (136-145); Total Protein 7.5 g/dL (6.4-8.2)
== END 2023-11-01 03:49 | disposition home or self-care (01) ==
LOC: LBO 03:48
PROVIDERS: PCP Nurse Practitioner Adult Health; Referring Provider Nurse Practitioner Adult Health; Visit Provider Nurse Practitioner Adult Health
DX: D64.9 Anemia, unspecified (principal); J44.9 Chronic obstructive pulmonary disease, unspecified
CPT/HCPCS: 36415; 80053; 85025

== ENCOUNTER 2023-11-09 03:05 | Outpatient (CLI) | payer MEDICARE, SELFPAY ==
[2023-11-09] MEDS: Levalbuterol HFA 15 GM INH 4 PUFF IH (14:27)
[2023-11-09] MEDS: Inhaler, Assist Device 1 EACH MC (14:28)
--- NOTE | 2023-11-09 15:45 | W.PFT ---
Date of service: 11/09/23 Time of Service: 13:00 Pulmonary Function Test Result Requesting Provider Yohana Alicea Indications: COPD Impression Spirometry shows decreased FEV1/FVC of 44%. Severe decrease in FEV1 of 44% with significant reversibility after bronchodilator going up to 50%. Normal lung volumes with significant air trapping. Mild decrease in diffusion. Flow volume curves suggest obstruction. Impression Severe obstructive ventilatory defect with air trapping and a mild decrease in diffusion which could be consistent with COPD. Clinical Correlation therefore is recommended.
== END 2023-11-09 03:06 | disposition home or self-care (01) ==
LOC: RT 03:05
PROVIDERS: PCP Nurse Practitioner Adult Health; Visit Provider Nurse Practitioner Adult Health
DX: J44.9 Chronic obstructive pulmonary disease, unspecified (principal)
CPT/HCPCS: 00123; 94060; 94726; 94729

== ENCOUNTER 2024-05-22 04:31 | Outpatient (CLI) | payer MEDICARE, SELFPAY | END 2024-05-22 04:32 | disposition home or self-care (01) | LOC: RT 04:31 | PROVIDERS: PCP Nurse Practitioner Adult Health; Visit Provider Nurse Practitioner Adult Health | DX: J44.89 Other specified chronic obstructive pulmonary disease (principal) | CPT/HCPCS: 94762 ==

== ENCOUNTER 2025-01-24 15:56 | Outpatient (REF) | payer MEDICARE, SELFPAY ==
[2025-01-24 21:19] LABS: Abs Immature Grans 0.01 10^3/uL (0.0-0.06); HCT 39.7 % (40.0-50.0); HGB 13.3 g/dL (13.5-17.5); Immature Grans % 0.2 %; MCH 29.6 pg (27.0-33.0); MCHC 33.5 % (32.0-36.0); MCV 88 fL (80-95); MPV 9.9 fL (8.0-11.0); Platelet Count 340 10^3/uL (130-400); RBC 4.49 10^6/uL (4.36-5.78); RDW 14.2 % (11.8-14.1); RDW-SD 45.7 fL; WBC 5.57 10^3/uL (4.4-10.8)
[2025-01-24 21:35] LABS: ALT 13 U/L (10-49); AST 27 U/L (<34); Albumin 4.7 g/dL (3.4-5.0); Alkaline Phosphatase 87 U/L (46-116); Anion Gap 4.2 mmol/L (3-11); BUN 24 mg/dL (9-23); Bilirubin, Total 0.30 mg/dL (0.2-1.2); CO2 22.8 mmol/L (20.0-31.0); Calcium 9.1 mg/dL (8.3-10.6); Chloride 113 mmol/L (98-107); Glucose 97 mg/dL (74-106); Potassium 4.1 mmol/L (3.5-5.1); Sodium 140 mmol/L (136-145); Total Protein 7.8 g/dL (5.7-8.2)
[2025-01-24 21:38] LABS: TSH (W/Ref FT4) 0.75 uIU/mL (0.55-4.78)
[2025-01-24 22:04] LABS: Vitamin B12 366 pg/mL (211-911)
== END 2025-01-24 15:57 | disposition home or self-care (01) ==
LOC: LBN 15:56
PROVIDERS: PCP Nurse Practitioner Adult Health; Visit Provider Nurse Practitioner Adult Health
DX: R53.83 Other fatigue (principal)
CPT/HCPCS: 80053; 82607; 84443; 85025